=== PATIENT | female | born 1990 | race Caucasian/White ===

== ENCOUNTER 2016-12-28 16:59 | Emergency (ER) | payer SELFPAY ==
[~2016-12-28] VITALS: Ht 167.6 cm; Wt 65.9 kg
[2016-12-28 17:14] VITALS: TEMP 98.4
[2016-12-28] MEDS ORDERED: CELEXA10 MG (18:01)
[2016-12-28] MEDS ORDERED: ATARAX 25MG25 MG/TAB PO (18:01)
[2016-12-28 18:10] LABS: BASO % 0.2 % (0.0-2.0); EOS # 0.1 (0.0-0.7); EOS % 1.1 % (0-4.0); GRAN # 3.8 (1.4-6.5); GRAN % 68.9 % (42.2-75.2); HEMATOCRIT 38.7 % (37.0-47.0); HEMOGLOBIN 13.5 g/dl (12.5-16.0); LYMPH # 1.1 (1.2-3.4); LYMPH % 19.7 % (20.0-51.0); MEAN CELL VOLUME 92 fl (80.0-100.0); MEAN CORPUSCULAR HEMOGLOBIN 32 pg (27.0-31.0); MEAN CORPUSCULAR HGB CONC 35 g/dl (33.0-37.0); MONO # 0.5 (0.1-0.6); MONO % 9.7 % (1.7-9.3); PLATELET COUNT 220 K/mm3 (130-400); REDCELL DISTRIBUTION WIDTH-CV 12.2 % (11.5-14.5); WHITE BLOOD COUNT 5.4 K/mm3 (4.8-10.8)
[2016-12-28 18:18] LABS: AMPHETAMINE URINE NEGATIVE; BARBITURATES URINE NEGATIVE; BENZODIAZEPINES URINE NEGATIVE; BUPRENORPHINE URINE NEGATIVE; METHADONE URINE NEGATIVE; OPIATES URINE NEGATIVE; OXYCODONE URINE NEGATIVE; PHENCYCLIDINE URINE NEGATIVE; PROPOXYPHENE URINE NEGATIVE; THC CANNABINOIDS URINE POSITIVE
[2016-12-28 18:21] LABS: ADJUSTED CALCIUM 8.6 mg/dL (8.4-10.2); ALANINE AMINOTRANSFERASE 27 U/L (9-52); ALBUMIN 4.5 gm/dL (3.5-5.0); ALKALINE PHOSPHATASE 76 U/L (50-136); ANION GAP 9 mmol/L (7-16); BLOOD UREA NITROGEN 9 mg/dL (7-17); CARBON DIOXIDE 24 mmol/L (22-30); CHLORIDE 105 mmol/L (98-107); GLUCOSE 100 mg/dL (74-106); POTASSIUM 3.9 mmol/L (3.4-5.0); SODIUM 139 mmol/L (137-145); TOTAL PROTEIN 7.2 gm/dL (6.4-8.2)
[2016-12-28 18:22] LABS: ACETAMINOPHEN < 10 ug/mL (10-30); SALICYLATE < 1.0 mg/dL
[2016-12-28 21:00] VITALS: BP 122/83; PULSE 80
== END 2016-12-28 21:06 | disposition home or self-care (01) ==
LOC: COL.ER 16:59
PROVIDERS: Nurse Practitioner
DX: F32.9 Major depressive disorder, single episode, unspecified (principal); T65.92XA Toxic effect of unspecified substance, intentional self-harm, initial encounter; Z32.02 Encounter for pregnancy test, result negative
CPT/HCPCS: J7030